=== PATIENT | female | born 1980 | race Two or more races ===

== ENCOUNTER 2018-02-10 15:45 | Emergency (ER) | payer SELFPAY ==
[~2018-02-10] VITALS: Ht 160 cm; Wt 81.6 kg
[~2018-02-10 15:45] MED LIST: ASPI-621 PO
--- NOTE | 2018-02-10 17:06 | PHYS DOC ---
Past Medical History Past Medical History: No Pertinent History Past Surgical History: No Surgical History Alcohol Use: None Drug Use: None Adult General Chief Complaint Chief Complaint: HEADACHE HPI HPI Patient is a 37 year old female who presents with left occipital headache that radiates to the left neck for the last week. Patient reports she first noticed this about 1 week ago, it lasted about one hour then resolved spontaneously. She reports since then it has continued to wax and wane, but has not gotten worse. She reports with the patient is severe, she gets nauseated and feels a stabbing in her left eye. She denies any blurred or double vision. She denies any injury. She reports she has felt chilled, but has not checked her temperature. She denies any upper respiratory symptoms.[] Review of Systems Review of Systems Constitutional: Reports chills Eyes: Denies change in visual acuity, redness. Reports left eye pain when headache is at its worst HENT: Denies nasal congestion or sore throat [] Respiratory: Denies cough or shortness of breath [] Cardiovascular: No additional information not addressed in HPI [] GI: Denies abdominal pain, vomiting or diarrhea [] : Denies dysuria or hematuria [] Musculoskeletal: Reports left neck pain Denies back pain or joint pain [] Integument: Denies rash or skin lesions [] Neurologic: Reports headache. Denies focal weakness or sensory changes [] All other systems were reviewed and found to be within normal limits, except as documented in this note. Current Medications Current Medications Current Medications Medications (Trade) Dose Ordered Sig/Colette Start Time Stop Time Status Last Admin Dose Admin Ceftriaxone Sodium (Rocephin) 1 gm 1X ONCE 02/10/18 18:00 02/10/18 18:01 DC 02/10/18 17:55 1 GM Cyclobenzaprine HCl (Flexeril) 10 mg 1X ONCE 02/10/18 17:15 02/10/18 17:16 DC 02/10/18 17:53 10 MG Ketorolac Tromethamine (Toradol 30mg Vial) 15 mg 1X ONCE 02/10/18 17:15 02/10/18 17:16 DC 02/10/18 17:53 15 MG Ondansetron HCl (Zofran) 4 mg 1X ONCE 02/10/18 18:00 02/10/18 18:01 DC 02/10/18 17:53 4 MG Sodium Chloride 1,000 ml @ 1,000 mls/hr 1X ONCE 02/10/18 17:15 02/10/18 18:14 DC 02/10/18 17:52 1,000 MLS/HR Allergies Allergies Allergies Coded Allergies Type Severity Reaction Last Updated Verified No Known Drug Allergies 01/15/15 No Physical Exam Physical Exam Constitutional: Well developed, well nourished, no acute distress, non-toxic appearance. [] HENT: Normocephalic, atraumatic, bilateral external ears normal, oropharynx moist, no oral exudates, nose normal. [] Eyes: PERRLA, EOMI, conjunctiva normal, no discharge. [] Neck: Normal range of motion, no tenderness, supple, no stridor. [] Cardiovascular:Heart rate regular rhythm, no murmur [] Lungs & Thorax: Bilateral breath sounds clear to auscultation [] Abdomen: Bowel sounds normal, soft, no tenderness, no masses, no pulsatile masses. [] Skin: Warm, dry, no erythema, no rash. [] Back: No tenderness, no CVA tenderness. [] Extremities: No tenderness, no cyanosis, no clubbing, ROM intact, no edema. [] Neurologic: Alert and oriented X 3, normal motor function, normal sensory function, no focal deficits noted. [] Psychologic: Affect normal, judgement normal, mood normal. [] Current Patient Data Vital Signs Vital Signs Date Time Temp Pulse Resp B/P (MAP) Pulse Ox O2 Delivery O2 Flow Rate FiO2 02/10/18 16:50 98.0 86 16 130/73 (92) 99 Room Air 98.0 Lab Values Laboratory Tests Test 02/10/18 16:50 02/10/18 17:22 02/10/18 17:30 Urine Collection Type Unknown Urine Color Yellow Urine Clarity Cloudy Urine pH 6.0 Urine Specific [place] 1.010 Urine Protein Negative mg/dL (NEG-TRACE) Urine Glucose (UA) Negative mg/dL (NEG) Urine Ketones (Stick) Negative mg/dL (NEG) Urine Blood Large (NEG) Urine Nitrite Negative (NEG) Urine Bilirubin Negative (NEG) Urine Urobilinogen Dipstick 0.2 mg/dL (0.2 mg/dL) Urine Leukocyte Esterase Large (NEG) Urine RBC 6-10 /HPF (0-2) Urine WBC 1-4 /HPF (0-4) Urine Squamous Epithelial Cells Many /LPF Urine Bacteria Many /HPF (0-FEW) POC Urine HCG, Qualitative Hcg negative (Negative) White Blood Count 6.7 x10^3/uL (4.0-11.0) Red Blood Count 4.31 x10^6/uL (3.50-5.40) Hemoglobin 13.1 g/dL (12.0-15.5) Hematocrit 38.4 % (36.0-47.0) Mean Corpuscular Volume 89 fL (79-100) Mean Corpuscular Hemoglobin 31 pg (25-35) Mean Corpuscular Hemoglobin Concent 34 g/dL (31-37) Red Cell Distribution Width 13.2 % (11.5-14.5) Platelet Count 313 x10^3/uL (140-400) Neutrophils (%) (Auto) 61 % (31-73) Lymphocytes (%) (Auto) 30 % (24-48) Monocytes (%) (Auto) 7 % (0-9) Eosinophils (%) (Auto) 1 % (0-3) Basophils (%) (Auto) 1 % (0-3) Neutrophils # (Auto) 4.1 x10^3uL (1.8-7.7) Lymphocytes # (Auto) 2.0 x10^3/uL (1.0-4.8) Monocytes # (Auto) 0.5 x10^3/uL (0.0-1.1) Eosinophils # (Auto) 0.1 x10^3/uL (0.0-0.7) Basophils # (Auto) 0.0 x10^3/uL (0.0-0.2) Sodium Level 140 mmol/L (136-145) Potassium Level 3.7 mmol/L (3.5-5.1) Chloride Level 104 mmol/L (98-107) Carbon Dioxide Level 26 mmol/L (21-32) Anion Gap 10 (6-14) Blood Urea Nitrogen 8 mg/dL (7-20) Creatinine 0.7 mg/dL (0.6-1.0) Estimated GFR (Cockcroft-Gault) 93.6 BUN/Creatinine Ratio 11 (6-20) Glucose Level 84 mg/dL (70-99) Calcium Level 8.9 mg/dL (8.5-10.1) Total Bilirubin 0.2 mg/dL (0.2-1.0) Aspartate Amino Transferase (AST) 20 U/L (15-37) Alanine Aminotransferase (ALT) 36 U/L (14-59) Alkaline Phosphatase 86 U/L (46-116) Total Protein 7.9 g/dL (6.4-8.2) Albumin 3.9 g/dL (3.4-5.0) Albumin/Globulin Ratio 1.0 (1.0-1.7) Laboratory Tests 02/10/18 17:30 Laboratory Tests 02/10/18 17:30 EKG EKG [] Radiology/Procedures Radiology/Procedures PATIENT: ESPINOZA FARIASACCOUNT: [id number]#: [id number] : 1980 LOCATION: ER AGE: 37 SEX: F EXAM STATUS: REG ER ORD. PHYSICIAN: XENIA DOMINGUEZ APRN REASON: persistent headache PROCEDURE: CT HEAD WO CONTRAST CT Head W/O Contrast: History: FOSTER NO PREV Comparison: none Axial images were obtained without contrast. The carter and white matter appears normal and symmetrical for the patients age. There is no mass effect, extraaxial fluid collections or hydrocephalus. There is no gross bleed. There is no focal loss of carter-white matter distinction to suggest acute ischemia, i.e. stroke. Impression: No acute findings. PQRS Compliance Statement: One or more of the following individualized dose reduction techniques were utilized for this examination: 1. Automated exposure control 2. Adjustment of the mA and/or kV according to patient size 3. Use of iterative reconstruction technique Electronically signed by: Ximena Downing III, MD (02/10/2018 5:55 PM) [facility] DICTATED and SIGNED BY: XIMENA DOWNING III, MD DATE: 02/10/18 1757 [] Course & Med Decision Making Course & Med Decision Making Pertinent Labs and Imaging studies reviewed. (See chart for details) [] Dragon Disclaimer Dragon Disclaimer This electronic medical record was generated, in whole or in part, using a voice recognition dictation system. Departure Departure Impression: Primary Impression: Neck muscle strain Additional Impressions: Headache UTI (urinary tract infection) Disposition: 01 HOME, SELF-CARE Condition: IMPROVED Referrals: NO PCP (PCP) Patient Instructions: Muscle Strain, Spinal Headache, Urinary Tract Infection Scripts Nitrofurantoin Monohyd/M-Cryst (MACROBID 100 MG CAPSULE) 100 Mg Capsule 1 CAP PO BID, #14 CAP Prov: XENIA DOMINGUEZ APRN 02/10/18 Cyclobenzaprine Hcl (CYCLOBENZAPRINE HCL) 10 Mg Tablet 1 TAB PO TID PRN for MUSCLE SPASMS, #30 TAB Prov: XENIA DOMINGUEZ APRN 02/10/18 Tramadol Hcl (ULTRAM) 50 Mg Tablet 1-2 TAB PO Q6HRS, #15 TAB Prov: XENIA DOMINGUEZ APRN 02/10/18 Problem Qualifiers Primary Impression: Neck muscle strain Encounter type: initial encounter Qualified Codes: S16.1XXA - Strain of muscle, fascia and tendon at neck level, initial encounter Additional Impressions: Headache Headache type: unspecified Headache chronicity pattern: acute headache Intractability: not intractable Qualified Codes: R51 - Headache UTI (urinary tract infection) Urinary tract infection type: acute cystitis Hematuria presence: without hematuria Qualified Codes: N30.00 - Acute cystitis without hematuria XENIA DOMINGUEZ APRN Feb 10, 2018 17:06
[2018-02-10] MEDS ORDERED: KETOROLAC 30 MG/ML VIAL. IV ONE (17:15)
[2018-02-10] MEDS ORDERED: CYCLOBENZAPRINE 10 MG TABLET. PO ONE (17:15)
[2018-02-10] MEDS ORDERED: ONDANSETRON PF 4 MG/2 ML VIAL. IM ONE (17:15)
[2018-02-10] MEDS ORDERED: IV NORMAL SALINE 1000ML BAG 1,000 ML IV ONE (17:15)
[2018-02-10 17:29] LABS: BILIRUBIN,URINE NEGATIVE (NEG); CLARITY,URINE CLOUDY; COLOR,URINE YELLOW; NITRITE,URINE NEGATIVE (NEG); PROTEIN,URINE NEGATIVE (NEG-TRACE); UROBILINOGEN,URINE 0.2 mg/dL (0.2 mg/dL)
[2018-02-10 17:37] LABS: BACTERIA,URINE MANY /HPF (0-FEW); SQUAMOUS EPITHELIAL CELL,UR MANY /LPF
[2018-02-10 17:41] LABS: BASO % 1 % (0-3); EOS # 0.1 x10^3/uL (0.0-0.7); EOS % 1 % (0-3); HEMATOCRIT 38.4 % (36.0-47.0); HEMOGLOBIN 13.1 g/dL (12.0-15.5); LYMPH % 30 % (24-48); MEAN CORPUSCULAR HEMOGLOBIN 31 pg (25-35); MEAN CORPUSCULAR HGB CONC 34 g/dL (31-37); MEAN CORPUSCULAR VOLUME 89 fL (79-100); MONO # 0.5 x10^3/uL (0.0-1.1); MONO % 7 % (0-9); NEUT # 4.1 x10^3uL (1.8-7.7); NEUT % 61 % (31-73); PLATELET COUNT 313 x10^3/uL (140-400); RED BLOOD COUNT 4.31 x10^6/uL (3.50-5.40); RED CELL DISTRIBUTION WIDTH 13.2 % (11.5-14.5); WHITE BLOOD COUNT 6.7 x10^3/uL (4.0-11.0)
[2018-02-10 17:48] LABS: CALCIUM 8.9 mg/dL (8.5-10.1); CREATININE 0.7 mg/dL (0.6-1.0); GFR 93.6; POTASSIUM 3.7 mmol/L (3.5-5.1)
[2018-02-10 17:54] LABS: ALBUMIN 3.9 g/dL (3.4-5.0); TOTAL BILIRUBIN 0.2 mg/dL (0.2-1.0); TOTAL PROTEIN 7.9 g/dL (6.4-8.2)
--- NOTE | 2018-02-10 17:59 | RAD ---
CT Head W/O Contrast: History: FOSTER NO PREV Comparison: none Axial images were obtained without contrast. The carter and white matter appears normal and symmetrical for the patients age. There is no mass effect, extraaxial fluid collections or hydrocephalus. There is no gross bleed. There is no focal loss of carter-white matter distinction to suggest acute ischemia, i.e. stroke. Impression: No acute findings. PQRS Compliance Statement: One or more of the following individualized dose reduction techniques were utilized for this examination: 1. Automated exposure control 2. Adjustment of the mA and/or kV according to patient size 3. Use of iterative reconstruction technique Electronically signed by: Enrique Barker III, MD (02/10/2018 5:55 PM) [facility]
[2018-02-10] MEDS ORDERED: ONDANSETRON PF 4 MG/2 ML VIAL. IV ONE (18:00)
[2018-02-10] MEDS ORDERED: cefTRIAXone IV Push 1 GM VIAL. IVP ONE (18:00)
[2018-02-10 18:25] VITALS: BP 155/79
[2018-02-10] MEDS ORDERED: NITR100C62 PO (18:25)
[2018-02-10] MEDS ORDERED: TRAM-48 PO (18:25)
[2018-02-10] MEDS ORDERED: CYCL10TA2 PO (18:25)
== END 2018-02-10 18:44 | disposition home or self-care (01) ==
LOC: ER 15:45
DX: S16.1XXA Strain of muscle, fascia and tendon at neck level, initial encounter (principal); R51 Headache; N30.00 Acute cystitis without hematuria; H57.12 Ocular pain, left eye; R68.83 Chills (without fever); X58.XXXA Exposure to other specified factors, initial encounter; Y93.89 Activity, other specified; Y92.89 Other specified places as the place of occurrence of the external cause; Y99.8 Other external cause status
CPT/HCPCS: 36415; 70450; 80053; 81001; 81025; 85025; 87086; 96374; 96375; 99284; J0696; J1885; J2405; J7030

== ENCOUNTER 2019-10-29 12:51 | Emergency (ER) | payer SELFPAY ==
[~2019-10-29] VITALS: Ht 160 cm; Wt 80.0 kg
[~2019-10-29 12:51] MED LIST changes: +CYCL10TA2 PO; +NITR100C62 PO; +TRAM-48 PO
[2019-10-29] MEDS ORDERED: ACETAMINOPHEN 500 MG TABLET PO ONE (13:45)
[2019-10-29 14:11] LABS: BASO % 0 % (0-3); EOS % 0 % (0-3); HEMATOCRIT 37.6 % (36.0-47.0); HEMOGLOBIN 12.8 g/dL (12.0-15.5); LYMPH # 0.5 x10^3/uL (1.0-4.8); LYMPH % 5 % (24-48); MEAN CORPUSCULAR HEMOGLOBIN 29 pg (25-35); MEAN CORPUSCULAR HGB CONC 34 g/dL (31-37); MEAN CORPUSCULAR VOLUME 87 fL (79-100); MONO # 0.2 x10^3/uL (0.0-1.1); MONO % 2 % (0-9); NEUT # 10.3 x10^3/uL (1.8-7.7); NEUT % 93 % (31-73); PLATELET COUNT 195 x10^3/uL (140-400); RED BLOOD COUNT 4.34 x10^6/uL (3.50-5.40); WHITE BLOOD COUNT 11.1 x10^3/uL (4.0-11.0)
--- NOTE | 2019-10-29 14:17 | RAD ---
CHEST AP ONLY Clinical Indication: Reason: cough, covid? Comparison: None. Findings: The cardiomediastinal silhouette is normal. There are patchy groundglass opacities in the bilateral lung bases. There is no pneumothorax. No pleural effusion is appreciated. No acute bone abnormality. IMPRESSION: Patchy groundglass opacities in the bilateral lung bases may be atelectasis or infiltrates or edema. Electronically signed by: Montana Reyna MD (10/29/2019 2:14 PM) [id number]
[2019-10-29 14:20] LABS: CALCIUM 8.1 mg/dL (8.5-10.1); CREATININE 0.8 mg/dL (0.6-1.0); GFR 79.4; POTASSIUM 3.7 mmol/L (3.5-5.1)
--- NOTE | 2019-10-29 14:25 | EKG ---
[facility] [address] [place] [address] Test Date: 2019-10-29 Test Time: 13:37:22 Pat Name: ESPINOZA FARIAS Department: Room: Gender: F Equipment Mechanic: : 1980 Requested By: ALLYN GOULD Order Number: [id number] Reading MD: Measurements Intervals [place] Rate: 103 P: 41 DE: 120 QRS: 84 QRSD: 94 T: 21 QT: 326 QTc: 429 Interpretive Statements SINUS TACHYCARDIA QRS(T) CONTOUR ABNORMALITY CONSIDER ANTEROLATERAL MYOCARDIAL DAMAGE POSSIBLY ABNORMAL ECG RI6.01 No previous ECG available for comparison
[2019-10-29 14:27] LABS: ALBUMIN/GLOBULIN RATIO 0.7 (1.0-1.7); TOTAL BILIRUBIN 0.5 mg/dL (0.2-1.0); TOTAL PROTEIN 7.5 g/dL (6.4-8.2)
[2019-10-29] MEDS ORDERED: KETOROLAC 30 MG/ML VIAL. IVP ONE (14:30)
[2019-10-29 14:41] LABS: C-REACTIVE PROTEIN 296.1 mg/L (0-3.3)
[2019-10-29 15:21] LABS: % BANDS 23 % (0-9); % LYMPHS 7 % (24-48); % MONOS 1 % (0-10); % SEGS 69 % (35-66)
[2019-10-29 15:22] LABS: PLT ESTIMATE ADEQUATE (ADEQUATE)
[2019-10-29 15:31] LABS: CLARITY,URINE BLOODY; COLOR,URINE RED
[2019-10-29 15:37] LABS: BACTERIA,URINE MOD /HPF (0-FEW); RBC,URINE TNTC /HPF (0-2); WBC,URINE >40 /HPF (0-4)
[2019-10-29 15:39] LABS: SQUAMOUS EPITHELIAL CELL,UR MANY /LPF
[2019-10-29] MEDS ORDERED: IOHEXOL 350 MG/ML 100 ML VIAL. IV ONE (15:45)
[2019-10-29 15:57] LABS: U PREG PATIENT NEGATIVE (NEG)
--- NOTE | 2019-10-29 16:26 | RAD ---
CT ANGIOGRAPHY CHEST INDICATION: sob, tachycardia, elevated ddimer Comparison: Chest radiograph 10/29/2019. TECHNIQUE: Following the uneventful administration of intravenous contrast, 100 cc Omnipaque 350, axial CT sections were obtained through the lungs and upper abdomen. Multiplanar reconstructions and MIP images were obtained. PQRS compliance statement: One or more of the following individualized dose reduction techniques were utilized for this examination: 1. Automated exposure control 2. Adjustment of the mA and/or kV according to patient size 3. Use of iterative reconstruction technique FINDINGS: Pulmonary arteries: No evidence of pulmonary thromboembolic disease. Lungs and Airways: Multifocal bilateral groundglass opacities involving all 5 lobes. No abnormality of the central airways. Pleura: The pleural spaces are normal. Heart and Mediastinum: The visualized thyroid is normal in size and attenuation. No axillary or supraclavicular lymphadenopathy. Enlarged right hilar lymph node measures 1.2 cm short axis (series 4 image 50). The heart and pericardium are within normal limits. The great vessels of the thorax are normal. Abdomen: Cholelithiasis. Bones and Soft Tissues: The visualized bones and chest wall soft tissues are within normal limits. IMPRESSION: 1. No evidence of pulmonary thromboembolic disease. 2. Multifocal bilateral groundglass opacities, likely representing an infectious/inflammatory process although edema could have a similar appearance. 3. Right hilar lymphadenopathy, likely reactive. Electronically signed by: Florencio Caro MD (10/29/2019 4:24 PM) [facility]
[2019-10-29 16:40] VITALS: BP 118/66
[2019-10-29] MEDS ORDERED: CEPH-264 PO (16:53)
[2019-10-29] MEDS ORDERED: KETO10TA PO (16:53)
--- NOTE | 2019-10-29 16:53 | PHYS DOC ---
Past Medical History Past Medical History: No Pertinent History Past Surgical History: Other Additional Past Surgical Histo: FALLOPIAN TUBE REMOVAL Smoking Status: Never Smoker Alcohol Use: None Drug Use: None General Adult EDM: Chief Complaint: FEVER HPI: HPI: Patient is a 39-year-old Lao-speaking female who presents to the emergency room with chest pain, shortness of breath, productive cough, body aches, fever. This started 1 week prior to arrival. She was tested for coronavirus earlier this week but has not yet gotten her results. She states that her shortness of breath and chest pain has progressively been getting worse. She is not tried to take anything for it prior to arrival. She is unsure if she has been around anybody who is been ill. She states chest pain feels like an achy pain that gets worse with coughing and breathing feel better Review of Systems: Review of Systems: General: Reports fever, chills, sweats, fatigue Eyes: Denies drainage, blurred vision, eye redness HENT: Denies rhinorrhea, sore throat, earache Respiratory: Reports cough, shortness of breath, wheezing Cardiac: Denies edema, palpitations. Reports chest pain GI: Denies abdominal pain, Nausea, vomiting MSK: Denies back pain, neck pain Skin: Denies rash, jaundice Neuro: Denies headache, dizziness Psychiatric: Denies SI/HI Heart Score: Risk Factors: Risk Factors: DM, Current or recent (<one month) smoker, HTN, HLP, family history of CAD, obesity. Risk Scores: Score 0 - 3: 2.5% MACE over next 6 weeks - Discharge Home Score 4 - 6: 20.3% MACE over next 6 weeks - Admit for Clinical Observation Score 7 - 10: 72.7% MACE over next 6 weeks - Early Invasive Strategies Current Medications: Current Medications Medications (Trade) Dose Ordered Sig/Colette Start Time Stop Time Status Last Admin Dose Admin Acetaminophen (Tylenol) 1,000 mg 1X ONCE 10/29/19 13:45 10/29/19 13:46 DC 10/29/19 13:42 1,000 MG Iohexol (Omnipaque 350 Mg/ml) 100 ml 1X ONCE 10/29/19 15:45 10/29/19 15:46 DC 10/29/19 16:14 100 ML Ketorolac Tromethamine (Toradol 30mg Vial) 30 mg 1X ONCE 10/29/19 14:30 10/29/19 14:31 DC 10/29/19 15:05 30 MG Allergies: Allergies: Allergies Coded Allergies Type Severity Reaction Last Updated Verified No Known Drug Allergies 01/15/15 No Physical Exam: PE: General: Awake, alert, NAD. Well Nourished, well hydrated. Cooperative HEENT: Atraumatic, EOMI, PERRL, airway patent, moist oral mucosa Neck: Supple, trachea midlin minimal diffuse crackles e Respiratory: CTA bilaterally, normal effort, minimal crackles CV: Tachycardia, no murmur, cap refill <2 GI: Soft, nondistended, nontender, no masses MSK: No obvious deformities Skin: Warm, dry, intact Neuro: A&O x3, speech NL, sensory and motor grossly intact, no focal deficits Psych: Normal affect, normal mood, not suicidal or homicidal Current Patient Data: Labs: Laboratory Tests Test 10/29/19 13:55 10/29/19 15:20 White Blood Count 11.1 x10^3/uL (4.0-11.0) H Red Blood Count 4.34 x10^6/uL (3.50-5.40) Hemoglobin 12.8 g/dL (12.0-15.5) Hematocrit 37.6 % (36.0-47.0) Mean Corpuscular Volume 87 fL (79-100) Mean Corpuscular Hemoglobin 29 pg (25-35) Mean Corpuscular Hemoglobin Concent 34 g/dL (31-37) Red Cell Distribution Width 14.0 % (11.5-14.5) Platelet Count 195 x10^3/uL (140-400) Neutrophils (%) (Auto) 93 % (31-73) H Lymphocytes (%) (Auto) 5 % (24-48) L Monocytes (%) (Auto) 2 % (0-9) Eosinophils (%) (Auto) 0 % (0-3) Basophils (%) (Auto) 0 % (0-3) Neutrophils # (Auto) 10.3 x10^3/uL (1.8-7.7) H Lymphocytes # (Auto) 0.5 x10^3/uL (1.0-4.8) L Monocytes # (Auto) 0.2 x10^3/uL (0.0-1.1) Eosinophils # (Auto) 0.0 x10^3/uL (0.0-0.7) Basophils # (Auto) 0.0 x10^3/uL (0.0-0.2) Segmented Neutrophils % 69 % (35-66) H Band Neutrophils % 23 % (0-9) H Lymphocytes % 7 % (24-48) L Monocytes % 1 % (0-10) Platelet Estimate Adequate (ADEQUATE) D-Dimer (Denise) 1.05 ug/mlFEU (0.00-0.50) H Sodium Level 133 mmol/L (136-145) L Potassium Level 3.7 mmol/L (3.5-5.1) Chloride Level 99 mmol/L (98-107) Carbon Dioxide Level 23 mmol/L (21-32) Anion Gap 11 (6-14) Blood Urea Nitrogen 11 mg/dL (7-20) Creatinine 0.8 mg/dL (0.6-1.0) Estimated GFR (Cockcroft-Gault) 79.4 BUN/Creatinine Ratio 14 (6-20) Glucose Level 103 mg/dL (70-99) H Calcium Level 8.1 mg/dL (8.5-10.1) L Total Bilirubin 0.5 mg/dL (0.2-1.0) Aspartate Amino Transferase (AST) 51 U/L (15-37) H Alanine Aminotransferase (ALT) 77 U/L (14-59) H Alkaline Phosphatase 98 U/L (46-116) Lactate Dehydrogenase 345 U/L (81-234) H Creatine Kinase 49 U/L (26-192) Troponin I Quantitative < 0.017 ng/mL (0.000-0.055) C-Reactive Protein, Quantitative 296.1 mg/L (0-3.3) H LE-Ver-D-Type Natriuretic Peptide 114 pg/mL (0-124) Total Protein 7.5 g/dL (6.4-8.2) Albumin 3.0 g/dL (3.4-5.0) L Albumin/Globulin Ratio 0.7 (1.0-1.7) L Urine Collection Type Unknown Urine Color Red Urine Clarity Bloody Urine pH (<5.0-8.0) Urine Specific [place] (1.000-1.030) Urine Protein mg/dL (NEG-TRACE) Urine Glucose (UA) mg/dL (NEG) Urine Ketones (Stick) mg/dL (NEG) Urine Blood (NEG) Urine Nitrite (NEG) Urine Bilirubin (NEG) Urine Urobilinogen Dipstick mg/dL (0.2 mg/dL) Urine Leukocyte Esterase (NEG) Urine RBC Tntc /HPF (0-2) Urine WBC >40 /HPF (0-4) Urine Squamous Epithelial Cells Many /LPF Urine Bacteria Mod /HPF (0-FEW) Urine Mucus Mod /LPF Urine Test Negative (NEG) Laboratory Tests 10/29/19 13:55 Laboratory Tests 10/29/19 13:55 Vital Signs: Vital Signs Date Time Temp Pulse Resp B/P (MAP) Pulse Ox O2 Delivery O2 Flow Rate FiO2 10/29/19 15:20 98.0 98.0 10/29/19 15:05 91 115/59 (77) 97 Room Air 10/29/19 13:13 22 EKG: EKG: [] Radiology/Procedures: Radiology/Procedures: [] Course & Med Decision Making: Course & Med Decision Making Pertinent Labs and Imaging studies reviewed. (See chart for details) Patient is a 39-year-old female who presents to the emergency room with shortness of breath, chest pain, abdominal pain. At this time there is concern for the novel coronavirus 19. Risk stratifying work-up was ordered including chest x-ray, d-dimer, CPK, CRP, LDH, troponin, ferritin, CBC, CMP. Due to concern of COVID-19 I have discussed the importance of quarantining with the patient. I have discussed with them that they should avoid grocery stores, gas stations, pharmacies, work, friends/family's homes. I discussed with him that i t is important that they do not expose themselves to anyone else for the next 14 days. Chest x-ray does show infiltrates at this time and patient will be treated with empiric antibiotics. I have discussed with the patient the course of the illness and we have discussed strict return precautions. At this time patient does not need admission as they are stable, however it is possible that they may get worse over the next few days and we have discussed the importance of coming back if they develop severe shortness of breath or any other symptoms that they are concerned about. Patient's test results and vitals while in the ED were fully reviewed and discussed with the patient. Patient is stable and at this time does not need admission to the hospital. We have discussed strict return precautions and the importance of following up with their Primary Care Physician. Patient stated understanding and was given an opportunity to ask any questions. Kdon Disclaimer: Dragon Disclaimer: This electronic medical record was generated, in whole or in part, using a voice recognition dictation system. COVID-19 Patient Risks: Exp to PUI: Yes Lower respiratory symptoms: Yes Fever: Yes PPE Use: Full PPE with N95 mask or PAPR: Yes Departure Departure Impression: Primary Impression: Suspected 2019 novel coronavirus infection Disposition: HOME, SELF-CARE Condition: STABLE Referrals: NO PCP (PCP) Patient Instructions: Shortness of Breath Additional Instructions: Tracy por visitar [facility]. Agradecemos que nos confe ghotra cuidado. Si surge algn problema adicional, no dude en volver a visitarnos. Gilberto un seguimiento con ghotra proveedor de atencin primaria para que pueda planificar atencin adicional si es necesario y conocer el problema que tuvo hoy. Si los sntomas empeoran, regrese al Departamento de Emergencias. Cualquier sntoma preocupante que comience, javier dolor en el pecho, falta de aire, debilidad o entumecimiento en un lado del cuerpo, fiebre torrey o cualquier otro sntoma preocupante, regresa a la nay de emergencias. Tiene un sndrome viral que puede incluir sntomas javier alvin musculares, fiebre, escalofros, secrecin nasal, tos, estornudos, dolor de garganta, nuseas, vmitos o diarrea. Kevin de los posibles virus que puede tener es el SARS-CoV-2, el virus que causa el COVID-19, tambin conocido javier Coronavirus. Es muy probable que tenga jax infeccin viral diferente, javier el resfriado comn, la gripe, etc. La mayora de los pacientes con coronavirus tienen sntomas leves y se recuperan por s solos. Descansar, mantenerse hidratado y dormir segn los casos conocidos puede ser til. A partir de la visita de jonatan, se encuentra lo suficientemente lisa javier para irse a casa y tratar elvi sntomas con lquidos orales y medicamentos de venta luz elena. Las pruebas de coronavirus no se realizan en la mayora de las personas con sntomas leves que reciben el torrey del departamento de emergencias. Si las pruebas de coronavirus se realizaron hoy, los resultados no estarn disponibles hasta posiblemente hasta 3-4 ureña. Si ghotra resultado es positivo, nos comunicaremos con usted. Siga las siguientes precauciones en casa: 1. Qudese en casa excepto para recibir atencin mdica. 2. Segn lo recomendado por los CDC, le recomendamos que se quede en ghotra casa y minimice el contacto con otras personas. No queremos que propague la infeccin. 3. Aquellos que son mayores o tienen problemas mdicos importantes pueden tener sntomas ms graves de esta infeccin. Recomendamos el autoaislamiento JALEN AL MENOS 7 UREÑA despus del primer da de sntomas. DESPUS de que se sienta mejor, espere AL MENOS JAX SEMANA antes de volver a elvi actividades habituales y estar rodeado de otras personas. 4. SI se siente ms enfermo y tiene dificultad para respirar, dolor en el pecho, no puede comer / beber, vmitos intensos, diarrea o debilidad, es posible que deba regresar al Departamento de Emergencias. 5. Debe restringir las actividades fuera de ghotra hogar, excepto para recibir atencin mdica. NO vaya al trabajo, la escuela o reas pblicas. Evite el uso de transporte pblico, viajes compartidos o taxis. 6. Seprese de otras personas en ghotra hogar. Debe usar un kya separado si es posible. 7. Evite compartir artculos domsticos personales javier platos, tazas, cubiertos, toallas, etc. 8. Limpie todas las superficies de alto contacto todos los ureña (pomos de las tyson, encimeras, etc.). Use un aerosol de limpieza para el hogar o lmpielo segn las instrucciones de la etiqueta. 9. Lvese las mao con frecuencia. Lvese las mao con agua y jabn jalen al menos 20 segundos. 10. Cbrase la boca y la nariz al toser o estornudar. 11. Tire los pauelos de papel usados ??a la basura y lvese las mao inmediatamente. Para obtener recursos adicionales, visite el sitio web de los CDC o el Departamento de [facility] ([phone]), prabhjot puede llamar al 211 para obtener ms informacin. Scripts Ketorolac Tromethamine (KETOROLAC TROMETHAMINE) 10 Mg Tablet 1 TAB PO TID PRN for MODERATE PAIN 4-6, #15 TAB Prov: ALLYN GOULD MD 10/29/19 Cephalexin (KEFLEX) 500 Mg Capsule 1 CAP PO Q12HR for 7 Days, #14 CAP 0 Refills Prov: ALLYN GOULD MD 10/29/19 Justicifation of Admission Dx: Justifications for Admission: Justification of Admission Dx: N/A ALLYN GOULD MD Oct 29, 2019 16:53
== END 2019-10-29 17:17 | disposition home or self-care (01) ==
LOC: ER 12:51
DX: Z20.828 Contact with and (suspected) exposure to other viral communicable diseases (principal); R06.02 Shortness of breath; R07.89 Other chest pain; R05 Cough; M79.10 Myalgia, unspecified site; R50.9 Fever, unspecified
CPT/HCPCS: 36415; 71045; 71275; 80053; 81001; 81025; 82550; 83615; 83880; 84484; 85007; 85025; 85379; 86140; 93005; 96374; 99285; J1885; Q9967; U0003